=== PATIENT | male | born 1980 | race African-American/Black ===

== ENCOUNTER → 2020-02-16 14:09 | Outpatient (BNVA) | payer OTHER, SELFPAY | PROVIDERS: Family Provider Family Medicine; Visit Provider Nurse Practitioner Family | DX: Z11.59 Encounter for screening for other viral diseases (principal) | CPT/HCPCS: 87635 ==

== ENCOUNTER → 2020-10-13 09:59 | Outpatient (BNVA) | payer OTHER, SELFPAY | PROVIDERS: Family Provider Family Medicine; Visit Provider Nurse Practitioner Family | DX: Z20.822 Contact with and (suspected) exposure to COVID-19 (principal) | CPT/HCPCS: 87635 ==

== ENCOUNTER → 2021-01-31 15:04 | Outpatient (BNVA) | payer OTHER, SELFPAY | PROVIDERS: Family Provider Family Medicine; Visit Provider Surgery | DX: Z01.812 Encounter for preprocedural laboratory examination (principal); Z20.822 Contact with and (suspected) exposure to COVID-19 | CPT/HCPCS: 87635 ==

== ENCOUNTER 2021-02-06 13:26 | Day surgery (SDC) | payer OTHER, SELFPAY ==
[2021-02-03 10:03] VITALS: BMI 27.3
[2021-02-06] VITALS (8 sets, daily range): BP systolic 117–133; BP diastolic 72–95; PULSE 57–95; RESP 12–19; TEMP 36.4–36.8; O2SAT 91–99
[2021-02-06] MEDS: sodium chloride 0.9% 1,000 ML 30 ML IV (13:58)
[2021-02-06] MEDS: acetaminophen 1,000 MG/100 ML PIGGYBACK 400 MG IV (13:59)
--- NOTE | 2021-02-06 14:09 | ANES.PREANE2 ---
Pre-Anesthetic Assessment Pre-Anesthetic Assessment: Height/Weight: Height 1.73 m Weight 81.647 kg Temp Pulse Resp BP Pulse Ox 98.2 F 57 L 18 119/82 97 02/06/21 13:46 02/06/21 13:46 02/06/21 13:46 02/06/21 13:46 02/06/21 13:46 Preop Diagnosis: Perianal fistula Proposed Procedure: Operation Date: 02/06/21 14:45 Proposed Procedures p Exam Under Anesthesia 71797 [id number] L05.91(Not Applicable) - Mikhail Eldridge MD s Fistulotomy Anal(Not Applicable) - Mikhail Eldridge MD Familial anesthetic complications: None Was Beta Gustavo taken within 24 hours: N/A Was Clonidine taken within 24 hours: N/A Last intake: Intake Last Liquid Date 02/05/21 Last Liquid Time 19:00 Last Solid Date 02/05/21 Last Solid Time 19:00 Social: Social History: No alcohol and No tobacco Exam: Pre-Anes Outpt Exam: alert, oriented x 3, clear to auscultation bilaterally and regular rate & rhythm Airway: Cervical ROM: WNL MP: 3 Dentition: Other (missing) Anesthetic Plan: ASA status: 1 Anesthesia: MAC Risk of > 500 ml blood loss (7ml/kg in children): No Meds/Allergies Current Medications: Current Medications Generic Name Dose Route Start Last Admin Trade Name Freq PRN Reason Stop Dose Admin Sodium Chloride 1,000 mls @ 30 ml s/hr 02/06/21 13:30 02/06/21 13:58 Sodium Chloride 0.9% IV 02/07/21 13:29 30 mls/hr .Q24H ESTELLA Administration PFSH Anesthesia PFSH: Social History Smoking and tobacco status: never smoked Alcohol intake: never Data Anesthesia Cardiac Studies: No Data to Display
--- NOTE | 2021-02-06 14:23 | P.HP_ITS ---
Same Day Surgery H&P Indication for Procedure/HPI DATE OF PROCEDURE: February 06, 2021 CHIEF COMPLAINT/INDICATIONFOR SURGICAL PROCEDURE: Spot on the bottom PREOP DIAGNOSIS: Perianal fistula PLANNED PROCEDRUE: Operation Date: 02/06/21 14:45 Proposed Procedures p Exam Under Anesthesia [id number] L05.91(Not Applicable) - Mikhail Eldridge MD s Fistulotomy Anal(Not Applicable) - Mikhail Eldridge MD Patient comes today as a follow-up as the index visit was referred to me for pilonidal cyst which I did not appreciate anything clinically. Today the patient has pictures on his phone and showed me the lesion that he is referring to which is literally consistent with perianal fistula, he reports a perianal abscess that was drained before and apparently the patient had persistent fistula there after. Patient denies history of inflammatory bowel disease or colon cancer. Patient reports no change in bowel habits or mucousy discharge or blood per rectum. Interim history 02/06/2021 Patient comes today for elective examination under anesthesia with possible fistulotomy. ROS All systems have been reviewed negative except as per the above or per problem list Medications/Allergies* Home Medications Medication Instructions Recorded Confirmed Type multivitamin 1 tab PO DAILY 09/01/20 02/06/21 History ascorbate calcium (vitamin C) 500 500 mg PO DAILY 11/20/20 02/06/21 History mg tablet elderberry fruit 200 mg capsule mg PO 11/20/20 12/19/20 History zinc 50 mg tablet 50 mg PO DAILY 11/20/20 02/06/21 History omega-3 fatty acids [[place] 3] 1,000 mg PO DAILY 02/06/21 02/06/21 History Allergies/Adverse Reactions Allergy/AdvReac Type Severity Reaction Status Date / Time No Known Allergies Allergy Verified 02/06/21 14:25 Current Medications: Generic Name Dose Route Start Last Admin Trade Name Freq PRN Reason Stop Dose Admin Sodium Chloride 1,000 mls @ 30 mls/hr 02/06/21 13:30 02/06/21 13:58 Sodium Chloride 0.9% IV 02/07/21 13:29 30 mls/hr .Q24H ESTELLA Administration Pertinent History/Comorbid Conditions* Social History Smoking and tobacco status: never smoked Alcohol intake: never Pertinent Exam Findings alert, oriented x 3, clear to auscultation bilaterally, regular rate & rhythm and procedure specific exam findings (Abdominal examination nontender nondistended soft) Recommendations Surgery/Procedure today (Exam under anesthesia possible fistulotomy) Coding Level of Care Code Acute Computer Science Teacher for Allison Wood
[2021-02-06] MEDS: piperacillin-tazobactam 3.375 GM in sodium chloride 0.9% (plus) 50 ML IV (14:45)
[2021-02-06] MEDS: lidocaine 2% INJ 20 mL INJECTION (15:23)
[2021-02-06] MEDS: neomycin-poly-bacitracin oint 28 gm 1 APPLIC TOPICAL (15:23)
--- NOTE | 2021-02-06 15:29 | P.OP_ITS ---
Operative Report Date of procedure: February 06, 2021 Pre-op Diagnosis: Perianal fistula Post-op diagnosis: same Post-op Diagnosis: Subcutaneous left lower lateral perianal fistula with concern of sebaceous cyst component Procedure Done: 1-Examination under anesthesia 2-Excision of left perianal fistula/sebaceous cyst Specimens removed/disposition: Left perianal inflammatory mass concerning for perianal fistula/sebaceous cyst Surgeon: Mikhail Eldridge Shuttle Buggy Operator: field service poultry technician Marina Circulating nurses Amber Bradley and Niurka Anesthesia: General (LMA mechanical technologist Glenda and Dillon) Estimated blood loss (mL): 5 IV fluids (mL): 400 Condition: stable Disposition: same day Brief History: Symptomatic left perianal sinus Procedure: Patient was identified in the holding area and was taken back to the operating room, which was first placed in supine position, LMA was placed by the anesthesia provider, prophylactic IV antibiotics were given per protocol,Time- out was done verifying the patient's name/date of /planned procedure and destination after the procedure, all were in agreement. Patient was placed in a lithotomy position were all pressure points were padded, timeout was done verifying the patient's name medical record number and procedure and destination after the procedure, all were in agreement. Prep and drape of the perianal and perineal area was done under the usual sterile technique. Perianal examination shows indurated area towards the left lower lateral compartment with a sinus opening. A digital rectal examination was done shows no masses or blood Placement of a well-lubricated Anoscope was introduced and there was no evidence of communication between the sinus, no evidence of fistulae or masses or hemorrhoids. A lacrimal probe was used and there was no evidence of communicating the sinus. clinically the lesion looked to me concerning for sebaceous cyst and excision was done of the whole inflammatory mass sent out for permanent pathology following by curettage, the muscle layer was not violated and the Anoscope was introduced at the end showing no violation of the anal canal as well., After copious and thorough irrigation using warm saline of the wound closure in layers by 3-0 chromic catgut followed by triple antibiotic ointment then Xeroform and ABDs. Patient tolerated the procedure well. Count was completed at the end of the procedure, patient was then extubated and was taken to the recovery room in stable condition I was present for the whole entire procedure
--- NOTE | 2021-02-06 15:34 | P.PCN_ITS ---
PACU note PACU note: VSS, Good respiratory effort, report to WIRE ROPE SALES REPRESENTATIVE Post-Anesthesia Exam: awake
--- NOTE | 2021-02-06 15:34 | PM.PACU ---
PACU note PACU note: VSS, Good respiratory effort, report to SWITCH OPERATORS SUPERVISOR Post-Anesthesia Exam: awake
--- NOTE | 2021-02-06 15:46 | SUR.PHASEI ---
PT AWAKES AND NORAL AIRWAY OUT PT SLEEPS IF NOT DISTURBED VSS IV PATENT, PT SATS 98% ON RA, GOOD RESP EFFORT NOTED DRESSING D/I
[2021-02-06] MEDS: HYDROcodone-acetaminophen 5-325 mg Tablet 1 TAB PO (16:26)
== END 2021-02-06 16:50 | disposition home or self-care (01) ==
PROVIDERS: PCP Family Medicine; Visit Provider Surgery
PROC: (CPT 46270; principal; 2021-02-06 14:45)
PROC: (CPT 46270; 2021-02-06 14:45)
DX: K60.3 Anal fistula (principal)
CPT/HCPCS: 46270; 88304; J1100; J2405; J2543; J2704; J3010; J3490; J7030

== ENCOUNTER 2022-02-25 06:24 | Day surgery (SDC) | payer BC, SELFPAY ==
[2022-02-22 14:46] VITALS: BMI 27.3
[2022-02-25] VITALS (9 sets, daily range): BP systolic 114–163; BP diastolic 72–96; PULSE 56–95; RESP 16–18; TEMP 36.1–36.7; O2SAT 95–100
[2022-02-25] MEDS: sodium chloride 0.9% 1,000 ML 30 ML IV (06:53)
--- NOTE | 2022-02-25 07:42 | W.PM.OPSUD ---
Surgery/Procedure H&P Update DATE OF PROCEDURE: February 25, 2022 DATE H&P PERFORMED: 02/06/22 PREOP DIAGNOSIS: perirectal cyst PLANNED PROCEDURE: Operation Date: 02/25/22 07:50 Proposed Procedures p excision of perirectal cyst (Not Applicable) - Nico Griffin DO
[2022-02-25] MEDS: ceFAZolin 2,000 MG in sodium chloride 0.9% (plus) 50 ML 100 MG IV (07:47)
--- NOTE | 2022-02-25 07:51 | ANES.PREANE2 ---
Pre-Anesthetic Assessment Height/Weight: Height 1.73 m Weight 81.647 kg Temp Pulse Resp BP Pulse Ox O2 Del Method 97.8 F 69 16 137/96 100 02/25/22 06:43 02/25/22 06:43 02/25/22 06:43 02/25/22 06:43 02/25/22 06:43 02/25/22 06:43 Preop Diagnosis: perirectal cyst Operation Date: 02/25/22 07:50 Proposed Procedures p Pilonidal Cystectomy(Not Applicable) - Nico Griffin DO Was Beta Gustavo taken within 24 hours: N/A Was Clonidine taken within 24 hours: N/A Last intake: Intake Last Liquid Date 02/24/22 Last Liquid Time 20:00 Last Solid Date 02/24/22 Last Solid Time 18:00 Social No alcohol and No tobacco Exam alert, oriented x 3, clear to auscultation bilaterally and regular rate & rhythm Airway Submandibular: within normal limits Cervical ROM: within normal limits Mallampati: Class II Dentition: full History/ROS No significant history except as noted Anesthetic Plan ASA status: 1 Anesthesia: Choice Medications/Allergies Home Medications Medication Instructions Recorded Confirmed Last Taken Type multivitamin 1 tab PO DAILY 09/01/20 02/25/22 02/22/22 History ascorbate calcium (vitamin C) 500 500 mg PO DAILY 11/20/20 02/25/22 02/22/22 History mg tablet elderberry fruit 200 mg capsule 200 mg PO DAILY 11/20/20 02/25/22 02/22/22 History zinc 50 mg tablet 50 mg PO DAILY 11/20/20 02/25/22 02/22/22 History omega-3 fatty acids 1,000 mg PO DAILY 02/06/21 02/25/22 02/22/22 History Allergies Allergy/AdvReac Type Severity Reaction Status Date / Time No Known Allergies Allergy Verified 02/06/22 16:07 Current Medications Generic Name Dose Route Start Last Admin Trade Name Freq PRN Reason Stop Dose Admin Sodium Chloride 1,000 mls @ 30 mls/hr 02/25/22 06:30 02/25/22 06:53 Sodium Chloride 0.9% IV 02/26/22 06:29 30 mls/hr .Q24H ESTELLA Administration PFSH Anesthesia Medical History Perianal fistula Pilonidal cyst Social History Smoking and tobacco status: never smoked Alcohol intake: never Data Anesthesia Cardiac Studies: No Data to Display
--- NOTE | 2022-02-25 08:32 | PM.OP ---
Operative Report Date of procedure: February 25, 2022 Pre-op diagnosis: Preop Diagnosis perirectal cyst Post-op diagnosis: other (Perianal fistula) Procedure done: Perianal fistulectomy Surgeon: Dr. Nico Griffin DO Anesthesia: General Complications: None apparent Brief History: This is a very pleasant 41-year-old gentleman who presented to my office with a recurrent perianal cyst. He had excision of a chronic cyst cavity approximately 1 year ago. About 1 month after the procedure he had recurrence of infection/cyst. He desired excision. Risks and benefits were explained and documented. Procedure: Patient was wheeled in the OR room and placed on the OR table in the prone jackknife position. Timeout was performed all present were in agreement. A rectal exam was performed and a fistula tracking from midline posterior to midline of the rectum, superficially, was identified with probe. The area was inspected prepped and draped in usual sterile fashion. 2% lidocaine was used to anesthetize the area over the fistula tract. Bovie cautery was then used to excise the superficial fistula tract, which was about 3 and half centimeters long. No sphincter muscles were encountered. Hemostasis was achieved with electrocautery. Gelfoam was placed in the anus. Sterile bandage was applied. Patient tolerated the procedure well.
--- NOTE | 2022-02-25 09:04 | SUR.PHASEI ---
0856 PT TO PACU 5 PT SLEEPY BUT AWAKES TO TOUCH, ORAL AIRWAY OUT ON ARRIVAL,MONITOR SR WITH NO ECTOPY, VSS IV TO LT AC #20 WITH NS 500ML UP AT KVO RATE PER GRAVITY, ID BRACELET TO LT WRIST , PT ID'D WITH 2 IDENTIFIERS. BILAT SCD ON
--- NOTE | 2022-02-25 09:21 | SUR.PHASEI ---
0900 WARM BLANKETS X 2 PT DENIES PAIN AND NAUSEA AT THIS TIME, NO BLEEDING NOTED 09 PT AWAKES TO VOICE, DENIES PAIN AND NAUSEA,MONITOR SB TO SR WITH NO ECTOPY NOTED DRESSING D/I, IV PATENT AT KVO RATE. PT TO OPS HANDOFF AT BEDSIDE.
--- NOTE | 2022-02-25 10:05 | P.PCN_ITS ---
PACU note Narrative: VSS, Good respiratory effort, report to MICROSTRATEGY ARCHITECT Exam: awake
--- NOTE | 2022-02-25 10:05 | PM.PACU ---
PACU note Narrative: VSS, Good respiratory effort, report to COBOL MAINFRAME DEVELOPER Exam: awake
--- NOTE | 2022-02-25 15:53 | ANE.PACU2 ---
Inpatient post-anesthesia follow up: Airway intact: Yes Vital signs: Temperature 98.1 F Pulse Rate 58 Respiratory Rate 16 Blood Pressure 134/78 Pulse Oximetry 96 Oxygen Delivery Me thod Room Air Oxygen Flow Rate 8 Fraction of Inspir ed Oxygen Hydration adequate: Yes Nausea and vomiting: No Pain level: 2 Mental status: Baseline
== END 2022-02-25 10:20 | disposition home or self-care (01) ==
PROVIDERS: PCP Family Medicine; Visit Provider Surgery
PROC: (CPT 46270; 2022-02-25 07:40)
DX: K62.89 Other specified diseases of anus and rectum (principal)
CPT/HCPCS: 46270; J1100; J2405; J2704; J2710; J3010; J3490; J7030

== ENCOUNTER → 2022-10-02 09:07 | Outpatient (BNVA) | payer BC, SELFPAY | PROVIDERS: PCP Family Medicine; Visit Provider Family Medicine | DX: R10.9 Unspecified abdominal pain (principal) | CPT/HCPCS: 80053; 85025; 86850; 86900 ==

== ENCOUNTER 2022-10-10 06:13 | Outpatient (CLI) | payer BC, SELFPAY ==
--- NOTE | 2022-10-10 06:18 | US_ITS ---
WS: [id number] ULTRASOUND ABDOMEN LIMITED CLINICAL INFORMATION: RUQ pain COMPARISON: None. FINDINGS: Liver Size: Normal. Craniocaudal length: 14.2 cm. Echogenicity: Normal. Surface nodularity: None. Mass (size and location): None. Bile ducts Intrahepatic ducts: Normal. Common bile duct diameter: 0.3 cm. Gallbladder Normal. Gallstones: None. Gallbladder sludge: None. Gallbladder wall thickening: None. Pericholecystic fluid: None. Sonographic Mcknight sign: Absent. Pancreas Normal as visualized. Right kidney: Normal. Hydronephrosis: None. Size: 9.1 cm x 5.1 cm x 5.0 cm. Abdominal aorta and IVC Visualized portions are normal. Ascites: None. US/US gall bladder [id number] IMPRESSION: 1. Normal liver. 2. Gallbladder is normal. No gallbladder wall thickening or pericholecystic fl uid. 3. Normal common bile duct. 4. No hydronephrosis in RIGHT kidney.
== END 2022-10-10 06:14 | disposition home or self-care (01) ==
PROVIDERS: PCP Family Medicine; Visit Provider Family Medicine
DX: R10.11 Right upper quadrant pain (principal)
CPT/HCPCS: 76705

== ENCOUNTER → 2025-01-27 12:48 | Outpatient (BNVA) | payer OTHER, SELFPAY | PROVIDERS: PCP Family Medicine; Visit Provider Family Medicine | DX: I10 Essential (primary) hypertension (principal); M19.90 Unspecified osteoarthritis, unspecified site | CPT/HCPCS: 80053; 84550; 85025; 85651; 86140; 86618; 86666; 86757 ==